=== PATIENT | female | born 1935 | race African-American/Black ===

== ENCOUNTER 2018-04-06 11:09 | Emergency (ER) | payer OTHER ==
[~2018-04-06] VITALS: Ht 165.1 cm; Wt 55.0 kg
[2018-04-06] MEDS ORDERED: DEXTROSE 50% WATER 50ML SYRINGE IV ONE (11:45)
[2018-04-06 12:41] LABS: BG CARBOXYHEMOGLOBIN 3.8 % (0.5-1.5); BG DEOXYHEMOGLOBIN 1.9 % (0.0-5.0); BG FRACTION INSPIRED OXYGEN 21; BG HCO3 ACT 34.8 mmol/L (22.0-26.0); BG METHEMOGLOBIN 0.3 % (0.0-1.5); BG PH 7.469 (7.350-7.450); BG PO2 112.6 mmHg (75.0-100.0); BG SAMPLE SITE RIGHT BRACHIAL; BG TOTAL HEMOGLOBIN 8.4 g/dL (12.0-18.0); BG VENT MODE ROOM AIR
[2018-04-06] MEDS ORDERED: SODIUM CHLORIDE 0.9% 1,000 ML IV ONE (13:12)
[2018-04-06 13:39] LABS: CHLORIDE 104 mEq/L (98-107)
[2018-04-06 13:40] LABS: INR 1.2
[2018-04-06 13:54] LABS: HEMATOCRIT. 28.3 % (36.0-48.0); HEMOGLOBIN. 8.9 g/dL (12.0-16.0); MEAN CORPUSCULAR HEMOGLOBIN 23.6 pg (28.0-32.0); MEAN PLATELET VOLUME 8.3 fl (7.4-10.4); PLATELET 86 x1000/uL (130-400); RED BLOOD CELL COUNT 3.77 mill/uL (4.2-5.4); RED CELL DISTRIBUTION WIDTH 20.3 % (11.6-14.6)
[2018-04-06 14:41] LABS: PLATELET ESTIMATE SLIGHTLY DECREASED
[2018-04-06] MEDS ORDERED: IOHEXOL-350 100 ML BOTTLE ONE (16:48)
[2018-04-06 19:19] VITALS: BP 167/75
== END 2018-04-06 19:55 | disposition short-term general hospital (02) ==
LOC: ER 11:09 → CANBEDREQ 19:17 → ER 19:55
DX: R55 Syncope and collapse (principal); I71.4 Abdominal aortic aneurysm, without rupture; R18.8 Other ascites; K80.20 Calculus of gallbladder without cholecystitis without obstruction; D61.818 Other pancytopenia; I10 Essential (primary) hypertension; J44.9 Chronic obstructive pulmonary disease, unspecified
CPT/HCPCS: 36415; 36600; 71045; 74174; 80053; 82375; 82805; 82962; 83605; 84145; 84484; 85025; 85610; 87040; 93005; 96361; 96374; 99285; J7030; Q9967